=== PATIENT | female | born 1945 | race Caucasian/White ===

== ENCOUNTER → 2016-06-20 | Outpatient (CLI) | payer MEDICARE, OTHER ==
[~2016-06-20] MED LIST: CLINDAMYCIN HC300 MG PO; COREG6.25 MG PO; HYDROCODONE BIT1 T11 PO; LANTUS100 U/ML SC; LIPITOR10 MG PO; LISINOPRIL5 MG PO; LOPRESSOR25 MG PO; MOTRIN800 MG PO; NOVOLOG 701 UNIT/0.0 SC; ROBAXIN750 MG PO; SIMVASTATIN20 MG PO; VICODIN 500 MG-1 TAB PO
[2016-06-20 08:01] LABS: BASO # 0.1 10*3/uL (0.0-0.1); BASO % 0.6 % (0.0-1.0); EOS # 0.2 10*3/uL (0.0-0.4); EOS % 1.9 % (1.0-4.0); HEMATOCRIT 47.9 % (37.0-47.0); HEMOGLOBIN 15.9 g/dl (12.0-16.0); LYMPH # 3.4 10*3/uL (1.3-4.4); LYMPH % 33.8 % (27.0-41.0); MEAN CELL VOLUME 87.7 fl (81.0-99.0); MEAN CORPUSCULAR HGB 29.1 pg (27.0-31.0); MEAN CORPUSCULAR HGB CONC 33.2 g/dl (33.0-37.0); MEAN PLATELET VOLUME 11.3 fl (9.6-12.3); MONO # 0.6 10*3/uL (0.1-1.0); MONO % 6.1 % (3.0-9.0); NEUT # 5.8 10*3/uL (2.3-7.9); NEUT % 57.4 % (47.0-73.0); PLATELET COUNT AUTOMATED 264 10*3/uL (130-400); RED BLOOD COUNT 5.46 10*6/uL (4.10-5.10); RED CELL DISTRI WIDTH 14.5 % (0-14.5); WHITE BLOOD COUNT 10.1 10*3/uL (4.8-10.8)
[2016-06-20 08:10] LABS: HEMOGLOBIN A1c 10.8 % (4.8-5.6)
[2016-06-20 08:34] LABS: ALBUMIN 2.9 gm/dl (3.1-4.5); BUN 10 mg/dl (7-24); CARBON DIOXIDE 26 mmol/L (21-32); CHLORIDE 107 mmol/L (98-107); GLUCOSE 262 mg/dL (65-99); SODIUM 139 mmol/L (136-145)
[2016-06-20 08:38] LABS: ALKALINE PHOSPHATASE 81 U/L (45-117); BILIRUBIN, DIRECT 0.1 mg/dL (0.0-0.2); BILIRUBIN, TOTAL 0.7 mg/dl (0.2-1.0); CHOLESTEROL 226 mg/dL (<200); EST GLOM FILT AFRICAN AMERICAN > 60 ml/min; HDL CHOLESTEROL 48 mg/dl (40-60); LDL CHOLESTEROL 141 mg/dL (9-159); SGOT/AST 16 IU/L (3-35); SGPT/ALT 17 U/L (12-78); TRIGLYCERIDES 184 mg/dl (<150); VLDL CHOLESTEROL 37 mg/dL (6-40)
== END | disposition home or self-care (01) ==
LOC: LAB 07:29
PROVIDERS: Family Medicine
DX: E11.59 Type 2 diabetes mellitus with other circulatory complications (principal); R10.9 Unspecified abdominal pain

== ENCOUNTER 2017-05-31 20:19 | Emergency (ER) | payer MEDICARE, OTHER ==
[~2017-05-31] VITALS: Ht 157.4 cm; Wt 93.0 kg
[2017-05-31] MEDS ORDERED: PLAVIX75 M1 PO (20:50)
[2017-05-31] MEDS ORDERED: ASPIRIN LITE C325 MG PO (20:50)
[2017-05-31 20:56] LABS: BASO # 0.1 10*3/uL (0.0-0.1); BASO % 0.9 % (0.0-1.0); EOS # 0.4 10*3/uL (0.0-0.4); HEMATOCRIT 41.6 % (37.0-47.0); HEMOGLOBIN 14.1 g/dl (12.0-16.0); LYMPH % 30.5 % (27.0-41.0); MEAN CELL VOLUME 87.6 fl (81.0-99.0); MEAN CORPUSCULAR HGB 29.7 pg (27.0-31.0); MEAN CORPUSCULAR HGB CONC 33.9 g/dl (33.0-37.0); MEAN PLATELET VOLUME 10.8 fl (9.6-12.3); MONO # 0.6 10*3/uL (0.1-1.0); MONO % 6.6 % (3.0-9.0); NEUT # 5.6 10*3/uL (2.3-7.9); NEUT % 57.6 % (47.0-73.0); PLATELET COUNT AUTOMATED 268 10*3/uL (130-400); RED BLOOD COUNT 4.75 10*6/uL (4.10-5.10); RED CELL DISTRI WIDTH 14.5 % (0-14.5); WHITE BLOOD COUNT 9.7 10*3/uL (4.8-10.8)
[2017-05-31 21:04] LABS: INTERNATIONAL NORM RATIO 0.9 (2.0-3.5)
[2017-05-31 21:19] LABS: ALBUMIN 3.1 gm/dl (3.1-4.5); ALKALINE PHOSPHATASE 78 U/L (45-117); BUN 17 mg/dl (7-24); CHLORIDE 104 mmol/L (98-107); POTASSIUM 3.9 mmol/L (3.5-5.1); SGOT/AST 10 IU/L (3-35); SGPT/ALT 16 U/L (12-78); SODIUM 138 mmol/L (136-145); TOTAL PROTEIN 7.1 gm/dL (6.4-8.2)
[2017-05-31 21:20] LABS: TROPONIN I < 0.015 ng/ml (<0.045)
== END 2017-05-31 23:49 | disposition home or self-care (01) ==
LOC: ED 20:19
PROVIDERS: Emergency Medicine Emergency Medical Services
DX: I10 Essential (primary) hypertension (principal); T44.7X5A Adverse effect of beta-adrenoreceptor antagonists, initial encounter; E11.9 Type 2 diabetes mellitus without complications; Z90.710 Acquired absence of both cervix and uterus; Z79.899 Other long term (current) drug therapy; Z79.4 Long term (current) use of insulin; Z88.0 Allergy status to penicillin; Z91.041 Radiographic dye allergy status; Z88.6 Allergy status to analgesic agent; Z86.73 Personal history of transient ischemic attack (TIA), and cerebral infarction without residual deficits; Y92.9 Unspecified place or not applicable

== ENCOUNTER → 2017-08-22 | Outpatient (CLI) | payer MEDICARE, OTHER ==
[~2017-08-22] MED LIST changes: +ASPIRIN LITE C325 MG PO; +PLAVIX75 M1 PO
--- NOTE | ~2017-08-22 | HM ---
[place], [place] HOLTER MONITOR REPORT NAME: Isaías [facility] [id number] UNIT #: [id number] ROOM: DOCTOR: JAIR GEORGE MD BIRTHDATE: [birth year] DOS: 08/24/2017 A 48-HOUR HOLTER MONITOR This study was recorded from 08/22/2017 through 08/24/2017. The recording was analyzed, interpreted and dictated on 08/24/2017. INDICATIONS: Stroke. PROCEDURE: A 48-hour Holter recording was obtained to the patient. FINDINGS: Basic rhythm is normal sinus with an average heart rate of 61. Heart rate varied from 47-101 beats per minute in sinus rhythm. The patient had very rare premature ventricular contractions. No ventricular tachycardia was seen. The patient had rare premature atrial contractions with 1 atrial triplet. There was no supraventricular tachycardia or atrial fibrillation recorded. No prolonged pauses were seen. The patient did not report any symptoms during the monitor. IMPRESSION: 1. Relative bradycardia with average heart rate of 61 and heart rates varying from 47-101 beats per minute recorded. 2. Otherwise, normal 48-hour Holter monitor. JAIR GEORGE MD CM:HOLTER:HOLTER MONITOR REPORT [id number] JAIR GEORGE MD
== END | disposition home or self-care (01) ==
LOC: CARD 10:12
DX: I63.311 Cerebral infarction due to thrombosis of right middle cerebral artery (principal); I69.30 Unspecified sequelae of cerebral infarction

== ENCOUNTER 2018-08-31 14:55 | Emergency (ER) | payer MEDICARE, OTHER ==
[~2018-08-31] VITALS: Ht 157.4 cm; Wt 90.7 kg
[~2018-08-31 14:55] MED LIST changes: +ADALAT10 MG PO; +BASAG SOL SC; +CAPOTEN12.5 MG PO; +FUROSEMIDE20 M1 PO; +HYDR12.5C PO; +NIFEDIPINE ER30 M1 PO; +NOVOLOG10 ML SC; +VITAMIN D32000 UNI1 PO; +XARELTO10 MG PO
[2018-08-31 15:49] LABS: BASO # 0.1 10*3/uL (0.0-0.1); BASO % 0.7 % (0.0-1.0); EOS # 0.3 10*3/uL (0.0-0.4); HEMATOCRIT 35.2 % (37.0-47.0); HEMOGLOBIN 11.2 g/dl (12.0-16.0); LYMPH # 2.9 10*3/uL (1.3-4.4); LYMPH % 33.2 % (27.0-41.0); MEAN CELL VOLUME 84.4 fl (81.0-99.0); MEAN CORPUSCULAR HGB 26.9 pg (27.0-31.0); MEAN CORPUSCULAR HGB CONC 31.8 g/dl (33.0-37.0); MEAN PLATELET VOLUME 10.3 fl (9.6-12.3); MONO # 0.6 10*3/uL (0.1-1.0); MONO % 6.8 % (3.0-9.0); NEUT # 4.8 10*3/uL (2.3-7.9); NEUT % 56.1 % (47.0-73.0); PLATELET COUNT AUTOMATED 308 10*3/uL (130-400); RED BLOOD COUNT 4.17 10*6/uL (4.10-5.10); RED CELL DISTRI WIDTH 16.6 % (0-14.5); WHITE BLOOD COUNT 8.6 10*3/uL (4.8-10.8)
[2018-09-13] MEDS ORDERED: XARELTO10 MG PO (10:39)
[2018-09-13] MEDS ORDERED: LEVAQUIN750 M1 PO (10:40)
[2018-09-21] MEDS ORDERED: METRONIDAZOLE500 M1 PO (08:27)
[2018-09-21] MEDS ORDERED: DOXYCYCLINE100 M3 PO (08:27)
== END 2018-08-31 16:37 | disposition home or self-care (01) ==
LOC: ED 14:55
PROVIDERS: Physician Assistant
DX: M79.661 Pain in right lower leg (principal); M79.671 Pain in right foot; F17.200 Nicotine dependence, unspecified, uncomplicated; Z88.8 Allergy status to other drugs, medicaments and biological substances; Z88.0 Allergy status to penicillin; Z79.899 Other long term (current) drug therapy; Z79.82 Long term (current) use of aspirin; Z90.710 Acquired absence of both cervix and uterus

== ENCOUNTER 2018-11-01 20:34 | Emergency (ER) | payer MEDICARE, OTHER ==
[~2018-11-01] VITALS: Ht 167.6 cm; Wt 113.4 kg
[~2018-11-01 20:34] MED LIST changes: +DOXYCYCLINE100 M3 PO; +LEVAQUIN750 M1 PO; +METRONIDAZOLE500 M1 PO
== END 2018-11-01 22:24 | disposition home or self-care (01) ==
LOC: ED 20:34
DX: S82.891A Other fracture of right lower leg, initial encounter for closed fracture (principal); R60.0 Localized edema; I10 Essential (primary) hypertension; E11.9 Type 2 diabetes mellitus without complications; E66.01 Morbid (severe) obesity due to excess calories; Z86.73 Personal history of transient ischemic attack (TIA), and cerebral infarction without residual deficits; Z88.8 Allergy status to other drugs, medicaments and biological substances; Z88.0 Allergy status to penicillin; Z79.899 Other long term (current) drug therapy; Z79.4 Long term (current) use of insulin; Z90.710 Acquired absence of both cervix and uterus; Z87.891 Personal history of nicotine dependence; X58.XXXA Exposure to other specified factors, initial encounter; Y93.89 Activity, other specified; Y92.89 Other specified places as the place of occurrence of the external cause; Y99.8 Other external cause status

== ENCOUNTER 2018-12-06 09:36 | Inpatient (IN) | payer MEDICARE, OTHER ==
[2018-12-06] VITALS (8 sets, daily range): BP systolic 135–191; BP diastolic 80–91
[~2018-12-06] VITALS: Ht 157.4 cm; Wt 91.0 kg
[~2018-12-06 09:36] MED LIST changes: +CIPRO500 MG PO
[2018-12-06 10:01] LABS: BASO % 0.4 % (0.0-1.0); EOS # 0.2 10*3/uL (0.0-0.4); HEMATOCRIT 32.6 % (37.0-47.0); HEMOGLOBIN 10.5 g/dl (12.0-16.0); LYMPH # 2.2 10*3/uL (1.3-4.4); LYMPH % 28.9 % (27.0-41.0); MEAN CELL VOLUME 88.6 fl (81.0-99.0); MEAN CORPUSCULAR HGB 28.5 pg (27.0-31.0); MEAN CORPUSCULAR HGB CONC 32.2 g/dl (33.0-37.0); MEAN PLATELET VOLUME 10.5 fl (9.6-12.3); MONO # 0.5 10*3/uL (0.1-1.0); MONO % 6.4 % (3.0-9.0); NEUT # 4.6 10*3/uL (2.3-7.9); NEUT % 61.2 % (47.0-73.0); PLATELET COUNT AUTOMATED 294 10*3/uL (130-400); RED BLOOD COUNT 3.68 10*6/uL (4.10-5.10); RED CELL DISTRI WIDTH 16.7 % (0-14.5); WHITE BLOOD COUNT 7.5 10*3/uL (4.8-10.8)
[2018-12-06 10:16] LABS: BUN 12 mg/dl (7-24); CHLORIDE 105 mmol/L (98-107); CREATININE 0.72 mg/dL (0.55-1.02); SODIUM 138 mmol/L (136-145)
--- NOTE | 2018-12-06 16:50 | NUR ---
Time: 1649 A 73 year old FEMALE admitted to under services of LOVE SANTA MD. Pt. arrived via bed from [place]. Chief complaint: S/P OSTEOMYELITIS HARDWARE REMOVAL. JHOANA MARTÍNEZ
--- NOTE | 2018-12-06 18:32 | NUR ---
DR. DOBBISN CALLED AND STATED HE WILL PUT IN ORDERS TOMORROW.
--- NOTE | 2018-12-06 19:30 | NUR ---
BEDSIDE REPORT RECEIVED FROM DAYLIGHT NURSE. PT IS AWAKE ALERT AND ORIENTED. RESPIRATIONS EASY AND UNLABORED. PT FLUIDS RUNNING INTO IV SITE WITHOUT DIFFICULTY. PT VOICES NO CONCERNS AT THIS TIME. CALL LIGHT IN REACH.
[2018-12-07] VITALS: BP 145/71
--- NOTE | 2018-12-07 01:00 | NUR ---
PT SLEEPING AT THIS TIME. IV FLUIDS INFUSING WITHOUT DIFFICULTY. CALL LIGHT IN REACH.
--- NOTE | 2018-12-07 03:00 | NUR ---
PT SLEEPING AT THIS TIME. NO SIGNS OF DISTRESS NOTED. CALL LIGHT IN REACH.
--- NOTE | 2018-12-07 06:00 | NUR ---
PT BSG 190. PT REFUSING COVERAGE AT THIS TIME. STATES THAT SHE WANTS IT BEFORE SHE EATS BREAKFAST.
[2018-12-07 06:49] LABS: BASO % 0.1 % (0.0-1.0); HEMATOCRIT 29.4 % (37.0-47.0); HEMOGLOBIN 9.2 g/dl (12.0-16.0); LYMPH # 2.1 10*3/uL (1.3-4.4); LYMPH % 17.7 % (27.0-41.0); MEAN CELL VOLUME 89.4 fl (81.0-99.0); MEAN CORPUSCULAR HGB CONC 31.3 g/dl (33.0-37.0); MONO # 0.8 10*3/uL (0.1-1.0); NEUT # 8.8 10*3/uL (2.3-7.9); NEUT % 74.8 % (47.0-73.0); PLATELET COUNT AUTOMATED 294 10*3/uL (130-400); RED BLOOD COUNT 3.29 10*6/uL (4.10-5.10); RED CELL DISTRI WIDTH 16.5 % (0-14.5); WHITE BLOOD COUNT 11.7 10*3/uL (4.8-10.8)
--- NOTE | 2018-12-07 06:53 | NUR ---
Isaías WRIGHTCE [id number] Please refer to the physician's history and physical for past medical history, comorbid conditions, and allergies. Diagnosis: OSTEOMYELITIS S/P HARDWARE REMOVAL Dusty Score: 14,MODERATE RISK WOUND DESCRIPTIONS: Wound Number: 1 Location of the wound: right buttocks Type of wound: stage 2 Thickness: Partial Size: 1.1cm x 1.2cm x 0.1cm Tunneling: none Undermining: none Sinus Tract: none Presence of Exudate: Serous sanguineous Amount: Light Color: Red Odor: None Periwound Skin Appearance: Normal Wound edges: approximated Pain (associated with wound): tender to touch How does patient state this happened? pt stated she has had area on and off and she isn't sure if it is due to the briefs at home or not. Pt also stated that she is up in her wheelchair the majority of her time unless she needs to go to the bathroom then her helps her transfer. Wound Number: 2 Location of the wound: coccyx Type of wound: stage 2 Thickness: Partial Size: 7.0cm x 0.5cm x 0.1cm Tunneling: none Undermining: none Sinus Tract: none Presence of Exudate: Serosanguineous Amount: Light Color: Red Odor: None Periwound Skin Appearance: Normal Wound edges: approximated Pain (associated with wound): tender to touch How does patient state this happened? pt stated she has had area on and off and she isn't sure if it is due to the briefs at home or not. Pt also stated that she is up in her wheelchair the majority of her time unless she needs to go to the bathroom then her helps her transfer. Wound Number: 3 RLE post op dressing intact. No strikethrough drainage noted at time of assessment. Drain patent at time of assessment. Pt stated she follows with podiatry every tuesday and will continue to do so once she is discharged. Surface the patient is resting on: Position Pro SKIN PREVENTION RECOMMENDATION: 1. Pressure redistribution support surface as appropriate 2. Elevate heels 3. Remove boots/TEDS every shift and reapply 4. Head of bed 30 degrees as tolerated 5. Assess nutrition and hydration 6. Manage moisture 7. Avoid the use of containment devices while in bed 8. Use absorptive products on surfaces limit layers of linens on bed 9. Turn and reposition every 1-2 hours in bed and every 1 hour in chair as tolerated 10. Weight shifts every 15 minutes while up in chair 11. Offloading with pillows or device to keep heels elevated off bed 12. Monitor skin at least every shift 13. Inspect under medical devices twice a day WOUND TREATMENT RECOMMENDATIONS: Cleanse right buttocks and coccyx with soap and water pat area dry then apply calazime every shift and prn for soiling. Wheelchair cushion when oob. Patient stated she doesn't need to follow up with in an outpatient setting for the areas to her butt she stated she will just keep following with podiatry for her leg.
[2018-12-07 06:56] LABS: BUN 15 mg/dl (7-24); CHLORIDE 107 mmol/L (98-107); POTASSIUM 4.3 mmol/L (3.5-5.1); SODIUM 137 mmol/L (136-145)
[2018-12-07 08:00] VITALS: BP 144/72
[2018-12-07 08:04] LABS: HEPATITIS B SURFACE AG Negative (Negative)
--- NOTE | 2018-12-07 09:00 | NUR ---
Data Reporting Analyst in to talk to patient. Patient states lives at home with her . There are 0 steps in the home. Physician: Dr. Sue Church [facility]acy: [facility] depending on [facility] health services: has had [facility] in the past and would like them again Patient's level of ADLs: MINIMAL ASSIST Patient has working utilities: yes DME: walker, hospital bed, would like a Isha lift for home Follow-up physician's appointment after d/c: she prefers to make her own follow up appt after discharge Does patient want to access PORTAL?: no Discharge plan discussed with patient. She lives at home with her . She is independent in her ADLs and ambulates with a walker. Discussed home health care services and she is agreeable and would like to have [facility] as she has had them in the past. She paulette like a Isha lift for home. Notified Dr. Church. When medically stable she will be discharged to home with [facility]. Her will provide transportation on discharge. RENETTA VALERA
--- NOTE | 2018-12-07 11:39 | NUR ---
Faxed prescription for Isha lift to [facility]
--- NOTE | 2018-12-07 15:36 | NUR ---
PHYSICAL THERAPY Nursing screen received and chart reviewed. Please order skilled PT evaluation if decline in functional mobility presents. Thank you, Park Parkinson,SPT Zayda Ruiz,PT,DPT
[2018-12-07 16:00] VITALS: BP 108/60
[2018-12-07 16:02] LABS: HCV AB VERIFICATION REFLEX CHG FOR REFLEX (Y); HCV ANTIBODY VERIFICATION Reactive (Non Reactive); HEPATITIS C AB 8.1 (0.0-0.9)
--- NOTE | 2018-12-07 17:51 | NUR ---
Pt c/o right ankle pain. Described as aching, rated at 7 on 0-10 scale. Respiration easy, unlabored. Skin pink and dry. Medicated per order. No acute distress noted. Pt verbalized relief.
--- NOTE | 2018-12-07 19:47 | NUR ---
PT REFUSES 1999 PROCARDIA. STATES " I DON'T TAKE THAT." MED IS ON PT MED LIST FROM HOME. PT CONT TO REFUSE.
[2018-12-07 20:00] VITALS: BP 154/59
--- NOTE | 2018-12-07 20:34 | NUR ---
1999 CALL LIGHT ON. YELLING "WHERE"S MY ?". REASSURANCE GIVEN. HOB ELEVATED. SIDE RAILS UP X'S 2. ALERT. CALL LIGHT IN REACH. HEP LOCK INTACT. BULKY DRSG D/I R FOOT. SHANNON BULB DRAIN INTACT. NO DRNG NOTED ON DRSG.
--- NOTE | 2018-12-07 22:13 | NUR ---
RESTING IN BED WITH EYES CLOSED. APPEARS TO BE SLEEPING.
[2018-12-08] VITALS: BP 157/63
--- NOTE | 2018-12-08 04:40 | NUR ---
PATIENT REQUESTED AND WAS MEDICATED WITH TYLENOL FOR C/O LEG PAIN. SEE EMAR. PATIENT INSISTING ON SITTING ON SIDE OF BED WITH LEG HANGING OVER. STATED IF WE DID NOT HELP HER SHE WOULD DO IT HERSELF AND HURT HERSELF.
--- NOTE | 2018-12-08 05:07 | NUR ---
PATIENT ASSISTED BACK TO LAYING POSITION IN BED. REINFORCED USE OF CALL LIGHT.
[2018-12-08 08:00] VITALS: BP 146/47
--- NOTE | 2018-12-08 08:26 | NUR ---
Faxed home health care order to [facility]
--- NOTE | 2018-12-08 08:41 | NUR ---
CALL PLACED TO PODIATRY REGARDING PLAN FOR PT PER DR REYES' REQUEST. DR DOBBINS STATES HE WILL BE IN TO SEE PT THIS AFTERNOON AND WILL THEN CALL DR REYES. DR REYES STATES SHE WILL PLACE A TENTATIVE D/C ORDER PLANNING FOR POSSIBLE D/C,
[2018-12-08] MEDS ORDERED: LISINOPRIL5 MG PO (08:51)
[2018-12-08] MEDS ORDERED: COREG6.25 MG PO (08:51)
[2018-12-08] MEDS ORDERED: XARELTO10 MG PO (08:51)
--- NOTE | 2018-12-08 09:51 | NUR ---
Received call from [facility] stating they received the home health care referral and are working on the process. Received call from [facility] stating they just discharged the patient and that the patient fired [facility] in September. Explained patient chose [facility] on discharge.
[2018-12-08 12:00] VITALS: BP 145/50
--- NOTE | 2018-12-08 14:00 | NUR ---
PT REFUSED DISCHARGE PHOTOS AT THIS TIME, SHE IS ALREADY DRESSED AND SITTING IN WHEELCHAIR IN PREPARARION FOR D/C.
--- NOTE | 2018-12-08 14:05 | NUR ---
Discharge instructions reviewed with patient/family. Patient receptive and verbalizes understanding. Follow-up care arranged. Written instructions given to patient/family. IV site removed. Pt trasnported via wheelchair. TOMMY RYAN
[2018-12-08 15:06] LABS: ACID FAST SPEC PROCESSING Tissue Grinding (.)
[2018-12-10 00:01] LABS: HEPATITIS C QUANTITATION HCV Not Detected IU/mL (.)
[2019-01-18 10:07] LABS: ACID FAST CULTURE Negative (.)
== END 2018-12-08 14:05 | disposition home or self-care (01) | DRG 478 ==
LOC: SDC 09:36 → 4E 16:36
PROVIDERS: Podiatrist; ADMIT Internal Medicine
PROC: 0QBG0ZZ Excision of Right Tibia, Open Approach (ICD-10-PCS; principal; 2018-12-06)
PROC: 0SPF04Z Removal of Internal Fixation Device from Right Ankle Joint, Open Approach (ICD-10-PCS; principal; 2018-12-06)
PROC: 0SGH0KZ Fusion of Right Tarsal Joint with Nonautologous Tissue Substitute, Open Approach (ICD-10-PCS; principal; 2018-12-06)
PROC: 0SGH04Z Fusion of Right Tarsal Joint with Internal Fixation Device, Open Approach (ICD-10-PCS; principal; 2018-12-06)
PROC: 0QBG0ZX Excision of Right Tibia, Open Approach, Diagnostic (ICD-10-PCS; principal; 2018-12-06)
PROC: 0SGF04Z Fusion of Right Ankle Joint with Internal Fixation Device, Open Approach (ICD-10-PCS; principal; 2018-12-06)
DX: T84.84XA Pain due to internal orthopedic prosthetic devices, implants and grafts, initial encounter (principal); M86.661 Other chronic osteomyelitis, right tibia and fibula; I69.354 Hemiplegia and hemiparesis following cerebral infarction affecting left non-dominant side; I11.9 Hypertensive heart disease without heart failure; E66.3 Overweight; M21.071 Valgus deformity, not elsewhere classified, right ankle; T84.7XXA Infection and inflammatory reaction due to other internal orthopedic prosthetic devices, implants and grafts, initial encounter; B19.20 Unspecified viral hepatitis C without hepatic coma; E11.40 Type 2 diabetes mellitus with diabetic neuropathy, unspecified; E11.69 Type 2 diabetes mellitus with other specified complication; M19.071 Primary osteoarthritis, right ankle and foot; Y83.1 Surgical operation with implant of artificial internal device as the cause of abnormal reaction of the patient, or of later complication, without mention of misadventure at the time of the procedure; Y92.89 Other specified places as the place of occurrence of the external cause; Z79.4 Long term (current) use of insulin; Z91.19 Patient's noncompliance with other medical treatment and regimen; Z68.36 Body mass index [BMI] 36.0-36.9, adult

== ENCOUNTER 2020-01-31 16:26 | Inpatient (IN) | payer MEDICARE, OTHER ==
[~2020-01-31] VITALS: Ht 157.4 cm; Wt 103.1 kg
[~2020-01-31 16:26] MED LIST changes: +CLOPIDOGREL75 MG PO; +COREG12.5 M1 PO; +GLIMEPIRIDE2 MG PO; +GOOD SENSE ASP325 MG PO; +LISINOPRIL20 MG PO; +MIRTAZAPINE15 M2 PO; +OXYBUTYNIN10 MG PO
[2020-01-31 16:27] VITALS: BP 136/35
[2020-01-31 17:17] LABS: BASO % 0.2 % (0.0-1.0); EOS % 0.2 % (1.0-4.0); HEMATOCRIT 36.5 % (37.0-47.0); LYMPH # 1.6 10*3/uL (1.3-4.4); LYMPH % 25.1 % (27.0-41.0); MEAN CELL VOLUME 89.9 fl (81.0-99.0); MEAN CORPUSCULAR HGB 29.3 pg (27.0-31.0); MEAN CORPUSCULAR HGB CONC 32.6 g/dl (33.0-37.0); MEAN PLATELET VOLUME 10.8 fl (9.6-12.3); MONO # 0.5 10*3/uL (0.1-1.0); MONO % 6.9 % (3.0-9.0); NEUT # 4.4 10*3/uL (2.3-7.9); NEUT % 67.4 % (47.0-73.0); PLATELET COUNT AUTOMATED 272 10*3/uL (130-400); RED BLOOD COUNT 4.06 10*6/uL (4.10-5.10); RED CELL DISTRI WIDTH 13.4 % (0-14.5); WHITE BLOOD COUNT 6.5 10*3/uL (4.8-10.8)
[2020-01-31 17:18] LABS: ACT PARTIAL THROMBO TIME 29.9 SECONDS (20.0-32.1)
[2020-01-31 17:23] LABS: ALBUMIN 2.7 gm/dl (3.1-4.5); ALKALINE PHOSPHATASE 55 U/L (45-117); BUN 13 mg/dl (7-24); CHLORIDE 102 mmol/L (98-107); CREATININE 0.99 mg/dL (0.55-1.02); LIPASE 69 U/L (73-393); POTASSIUM 3.4 mmol/L (3.5-5.1); SGOT/AST 21 IU/L (3-35); SGPT/ALT 18 U/L (12-78); SODIUM 134 mmol/L (136-145)
[2020-01-31 17:44] VITALS: BP 110/29
--- NOTE | 2020-01-31 18:47 | NUR ---
UNABLE TO OBTAIN IV SITE AT THIS TIME. DR ESTES AWARE.
[2020-01-31 18:58] VITALS: BP 161/68
[2020-01-31 22:10] VITALS: BP 158/68
--- NOTE | 2020-01-31 23:19 | NUR ---
REPORT RECEIVED FROM WENDIE RODRIGUEZ.
[2020-02-01] VITALS (16 sets, daily range): BP systolic 120–174; BP diastolic 50–82
--- NOTE | 2020-02-01 02:18 | NUR ---
PT RESTING IN ROOM AT THIS TIME. NO DISTRESS NOTED, NO VOICED COMPLAINTS. CALL LIGHT WITHIN REACH. WILL CONTINUE TO MONITOR.
--- NOTE | 2020-02-01 06:19 | NUR ---
PT GIVEN WATER. RESTING IN BED. CALL LIGHT WITHIN REACH. WILL CONTINUE TO MONITOR.
--- NOTE | 2020-02-01 07:30 | NUR ---
PT. RESTING IN BED, APPEARS TO BE IN NO DISTRESS. RR EASY AND NON-LABORED. CALL LIGHT WITHIN REACH. WILL CONTINUE TO MONITOR.
--- NOTE | 2020-02-01 09:21 | NUR ---
APTT- 68.4. DR. WEBB NOTIFIED. NO CHANGE IN RATE D/T PROTOCOL.
--- NOTE | 2020-02-01 09:22 | NUR ---
DR. WEBB AWARE OF CRITICAL TROPONIN
--- NOTE | 2020-02-01 09:44 | NUR ---
STILL WAITING FOR A BED AT [facility].
--- NOTE | 2020-02-01 11:58 | NUR ---
CLEANED PT. UP, PUT NEW BRIEF AND GOWN ON. INSERTED A BANERJEE CATHETER 16G. OBTAINED URINE SPECIMEN AND SENT TO LAB. PT. APPEARS TO BE IN NO DISTRESS AT THIS TIME. RR EASY AND NON-LABORED. CALL LIGHT WITHIN REACH. SKIN BREAKDOWN NOTED TO ABDOMINAL FOLDS, VERY RED AND IRRITATED. WILL CONTINUE TO MONITOR.
--- NOTE | 2020-02-01 12:00 | NUR ---
STILL WAITING FOR A BED AT [facility] FOR TRANSFER.
[2020-02-01 12:02] LABS: BILIRUBIN Negative (Negative); BLOOD 2+ (Negative); CLARITY Turbid (Clear); COLOR Dark Yellow (Yellow); GLUCOSE Negative (Negative); KETONE 2+ (Negative); LEUKO ESTERASE 3+ (Negative); NITRITE Positive (Negative); PH 5.5 (4.5-8.0); SPECIFIC GRAVITY 1.015 (1.001-1.030)
[2020-02-01 12:17] LABS: BACTERIA 4+; WBC TNTC wbc/hpf (0-5)
--- NOTE | 2020-02-01 14:35 | NUR ---
PT. RESTING IN BED. APPEARS TO BE IN NO DISTRESS, RR EASY AND NON-LABORED. CALL LIGHT WITHIN REACH. WILL CONTINUE TO MONITOR.
--- NOTE | 2020-02-01 16:41 | NUR ---
PT. RESTING IN BED, APPEARS TO BE IN NO DISTRESS. RR EASY AND NON-LABORED. CALL LIGHT WITHIN REACH. WILL CONTINUE TO MONITOR.
--- NOTE | 2020-02-01 19:26 | NUR ---
NURSE TO NURSE REPORT GIVEN TO THIS RN.HEPARIN DRIP INFUSING @ 10.8ML/HR.
--- NOTE | 2020-02-01 19:42 | NUR ---
NURSE TO NURSE REPORT GIVEN TO RN PANKAJ DENIS VIA PHONE.PT TO BE TRANSFERRED TO UNIT VIA STRETCHER AT THIS TIME.
--- NOTE | 2020-02-01 20:05 | NUR ---
PT ARRIVED TO THE FLOOR FROM ED AT THIS TIME. BEDISDE REPORT TAKEN FROM WENDIE MILLER.
--- NOTE | 2020-02-01 20:21 | NUR ---
ADMISSION VITALS WERE TAKEN AND THE PT HAD A 102.5 DEG FEVER. I CONTACTED THE RESIDENT ANSWERING FOR DR. WILDE AND DISCUSSED TREATMENT OPTIONS AT THIS TIME. HE WANTED TO GET MORE INFORMATION BEFORE PUTTING IN ORDERS.
--- NOTE | 2020-02-01 20:58 | NUR ---
A RECHECK OF THE PATIENT'S TEMP SHOWED A DECREASE TO 99.7. WILL CONTINUE TO MONITOR SHE IS ASYMPTOMATIC AT THIS TIME.
[2020-02-02] VITALS: BP 120/50
[2020-02-02 04:00] VITALS: BP 116/64
[2020-02-02 08:00] VITALS: BP 133/67
[2020-02-02 08:34] LABS: BASO % 0.3 % (0.0-1.0); EOS % 0.4 % (1.0-4.0); HEMATOCRIT 34.7 % (37.0-47.0); LYMPH # 1.8 10*3/uL (1.3-4.4); LYMPH % 24.9 % (27.0-41.0); MEAN CELL VOLUME 87.8 fl (81.0-99.0); MEAN CORPUSCULAR HGB 28.9 pg (27.0-31.0); MEAN CORPUSCULAR HGB CONC 32.9 g/dl (33.0-37.0); MEAN PLATELET VOLUME 10.6 fl (9.6-12.3); MONO # 0.5 10*3/uL (0.1-1.0); MONO % 7.1 % (3.0-9.0); NEUT # 4.8 10*3/uL (2.3-7.9); PLATELET COUNT AUTOMATED 272 10*3/uL (130-400); RED BLOOD COUNT 3.95 10*6/uL (4.10-5.10); RED CELL DISTRI WIDTH 13.1 % (0-14.5); WHITE BLOOD COUNT 7.2 10*3/uL (4.8-10.8)
[2020-02-02 08:50] LABS: ALBUMIN 2.5 gm/dl (3.1-4.5); ALKALINE PHOSPHATASE 51 U/L (45-117); BUN 10 mg/dl (7-24); CHLORIDE 103 mmol/L (98-107); CPK 207 U/L (26-192); CREATININE 0.74 mg/dL (0.55-1.02); LDH 306 U/L (84-246); POTASSIUM 3.3 mmol/L (3.5-5.1); SGOT/AST 21 IU/L (3-35); SGPT/ALT 19 U/L (12-78); SODIUM 135 mmol/L (136-145); TOTAL PROTEIN 7.4 gm/dL (6.4-8.2)
[2020-02-02 12:00] VITALS: BP 134/76
--- NOTE | 2020-02-02 14:33 | NUR ---
HEPARIN GTT HELD AT 1315 FOR ONE HR. GTT DECREASED BY 3. HEPARIN RUNNING @ 9.8 UNITS/KG/HR. PTT ORDERED FOR 2029.
--- NOTE | 2020-02-02 15:26 | NUR ---
Dog Barber in to talk to patient. Patient states lives at home with . There are no steps in the home. Physician: [facility] Pharmacy: [facility] services: none Patient's level of ADLs: MINIMAL ASSIST Patient has working utilities: all working DME: walker, hospital bed Follow-up physician's appointment after d/c: will be made by hospitalist nurse director upon discharge Does patient want to access PORTAL?: no Discharge plan discussed with patient, she lives at home with , she uses a walker for ambulation, she states she will return home when discharged, she stated she had [facility] in the past but doesn't feel at this time she needs anything, case management will follow. CAROL RIGGINS
--- NOTE | 2020-02-02 15:48 | NUR ---
BANERJEE REMOVED PER ORDER. DTV [id number]
[2020-02-02 16:00] VITALS: BP 139/84
[2020-02-02 20:00] VITALS: BP 157/78
--- NOTE | 2020-02-02 21:00 | NUR ---
HEAD TO TOE ASSESSMENT COMPLETED AT THIS TIME, PT RESTING QUIETLY AT THIS TIME, PT DENIES ANY PAIN OR DISCOMFORT EXCEPT FOR DRY AND CHAPPED LIPS, GAVE PT SOME LIP BALM AND APPLIED IT TO HER TWICE, LEFT TUBE AT BEDESIDE. BS, 150, NO SLIDING SCALE INSULIN NEEDED, PT WAS ABLE TO VOID A LARGE AMOUNT, INCONTINENT IN HER DIAPER. WILL CONTINUE TO MONITOR FOR SAFETY. NO ACUTE DISTRESS NOTED. ATTEMPTED X 2 TO RESTART PULLED OUT IV, ANOTHER NURSE UNABLE TO RESTART IV, CHARGE NURSE AWARE, DR BRIDGES WILL ADDRESS IT TOMORRROW WITH POSSIBLE PICC PLACEMENT DUE TO POOR VEINS, PTT AT HS WAS, 50.1, NO RATE CHANGE, NEW PTT DRAW IS AT 0700, WILL CONTINUE TO MONITOR FOR SAFETY, CALL LIGHT IN REACH.
[2020-02-03] VITALS: BP 149/77
--- NOTE | 2020-02-03 00:13 | NUR ---
I spoke to Dr. Braun regarding the pt only having one IV access after multiple other attempts by staff development manager. Pt is running Hep Gtt in the one IV site which is not compatible with IV abx. Okay to hold IV abx over the night and have Dr. Zacarias attempt midline in the morning. Kameron Dai, RN, PHRN
--- NOTE | 2020-02-03 06:59 | NUR ---
PT RESTING QUIETLY AT THIS TIME, NO PROBLEMS NOTED ALL SHIFT, WILL CONTINUE TO MONITOR FOR SAFETY, CALL LIGHT IN REACH.
[2020-02-03 07:06] LABS: BASO % 0.3 % (0.0-1.0); EOS % 0.6 % (1.0-4.0); HEMATOCRIT 35.7 % (37.0-47.0); LYMPH # 2.2 10*3/uL (1.3-4.4); LYMPH % 29.7 % (27.0-41.0); MEAN CELL VOLUME 88.1 fl (81.0-99.0); MEAN CORPUSCULAR HGB 29.1 pg (27.0-31.0); MEAN CORPUSCULAR HGB CONC 33.1 g/dl (33.0-37.0); MEAN PLATELET VOLUME 10.8 fl (9.6-12.3); MONO # 0.5 10*3/uL (0.1-1.0); MONO % 6.6 % (3.0-9.0); NEUT # 4.5 10*3/uL (2.3-7.9); NEUT % 62.7 % (47.0-73.0); PLATELET COUNT AUTOMATED 291 10*3/uL (130-400); RED BLOOD COUNT 4.05 10*6/uL (4.10-5.10); RED CELL DISTRI WIDTH 13.2 % (0-14.5); WHITE BLOOD COUNT 7.2 10*3/uL (4.8-10.8)
[2020-02-03 07:21] LABS: ALBUMIN 2.5 gm/dl (3.1-4.5); ALKALINE PHOSPHATASE 51 U/L (45-117); BUN 12 mg/dl (7-24); CHLORIDE 101 mmol/L (98-107); CREATININE 0.79 mg/dL (0.55-1.02); LDH 323 U/L (84-246); POTASSIUM 3.1 mmol/L (3.5-5.1); SGOT/AST 19 IU/L (3-35); SGPT/ALT 18 U/L (12-78); SODIUM 135 mmol/L (136-145); TOTAL PROTEIN 7.8 gm/dL (6.4-8.2)
[2020-02-03 07:22] LABS: CPK 216 U/L (26-192)
[2020-02-03 08:30] VITALS: BP 143/51
--- NOTE | 2020-02-03 10:05 | NUR ---
0700 PTT 59.5. NO BOLUS, NO CHANGE. HEPARIN GTT RUNNING @9.8 MG/KGK/HR
[2020-02-03 12:30] VITALS: BP 127/41
[2020-02-03 17:00] VITALS: BP 114/43
[2020-02-03 20:00] VITALS: BP 113/56
--- NOTE | 2020-02-03 22:00 | NUR ---
HEAD TO TOE ASSESSMENT COMPLETED, PT DENIED ANY PAIN OR DISCOMFORT, PT'S BLOOD SUGAR AT HS WAS 176, 3 UNITS OF HUMALOG GIVEN SUBQ PER SLIDING SCALE PER PROTOCAL, WILL CONTINUE TO MONITOR FOR SAFETY, CALL LIGHT IN REACH, BED IN LOW POSITION. PT ON TELE MONITOR, NSR. NO DISTRESS NOTED, WILL CONTINUE TO MONITOR FOR SAFETY.
[2020-02-04] VITALS: BP 118/46
[2020-02-04 08:32] VITALS: BP 143/80
[2020-02-04 09:12] LABS: BASO % 0.3 % (0.0-1.0); EOS % 0.4 % (1.0-4.0); HEMATOCRIT 37.6 % (37.0-47.0); LYMPH # 1.6 10*3/uL (1.3-4.4); MEAN CELL VOLUME 90.4 fl (81.0-99.0); MEAN CORPUSCULAR HGB 28.8 pg (27.0-31.0); MEAN CORPUSCULAR HGB CONC 31.9 g/dl (33.0-37.0); MEAN PLATELET VOLUME 11.3 fl (9.6-12.3); MONO # 0.5 10*3/uL (0.1-1.0); MONO % 7.1 % (3.0-9.0); NEUT # 5.2 10*3/uL (2.3-7.9); NEUT % 69.9 % (47.0-73.0); PLATELET COUNT AUTOMATED 305 10*3/uL (130-400); RED BLOOD COUNT 4.16 10*6/uL (4.10-5.10); RED CELL DISTRI WIDTH 13.2 % (0-14.5); WHITE BLOOD COUNT 7.4 10*3/uL (4.8-10.8)
[2020-02-04 09:30] LABS: ALBUMIN 2.6 gm/dl (3.1-4.5); ALKALINE PHOSPHATASE 50 U/L (45-117); BUN 15 mg/dl (7-24); CHLORIDE 104 mmol/L (98-107); CREATININE 0.81 mg/dL (0.55-1.02); LDH 349 U/L (84-246); POTASSIUM 3.6 mmol/L (3.5-5.1); SGOT/AST 24 IU/L (3-35); SGPT/ALT 21 U/L (12-78); SODIUM 134 mmol/L (136-145); TOTAL PROTEIN 7.8 gm/dL (6.4-8.2)
[2020-02-04 09:31] LABS: CPK 358 U/L (26-192)
[2020-02-04 12:00] VITALS: BP 117/42; BP 142/59
[2020-02-04 16:00] VITALS: BP 154/69
[2020-02-04 20:00] VITALS: BP 127/67
[2020-02-05] VITALS: BP 112/50; BP 144/58
--- NOTE | 2020-02-05 05:22 | NUR ---
HEAD TO TOE ASSESSMENT COMPLETED, PT RESTING QUIETLY AT THIS TIME, NAD, PT DENIES ANY PAIN OR DISCOMFORT AT THIS TIME. PT HAS CALL LIGHT IN REACH, BED IN LOW POSITION, ATTEMPTED TO REPOSITION HER AND ASSIST HER WITH TURNING. PT CAN HELP WITH TURNING AT TIME. PT PLEASANT, PT'S BLOOD SUGAR AT HS WAS 129, NO SLIDING SCALE AT HS REQUIRED FOR 129 BLOOD SUGAR, WILL CONTINUE TO MONITOR FOR SAFETY.
[2020-02-05 06:48] LABS: BASO % 0.3 % (0.0-1.0); EOS % 0.2 % (1.0-4.0); HEMATOCRIT 34.1 % (37.0-47.0); LYMPH # 2.6 10*3/uL (1.3-4.4); LYMPH % 28.4 % (27.0-41.0); MEAN CELL VOLUME 88.6 fl (81.0-99.0); MEAN CORPUSCULAR HGB 29.1 pg (27.0-31.0); MEAN CORPUSCULAR HGB CONC 32.8 g/dl (33.0-37.0); MEAN PLATELET VOLUME 11.9 fl (9.6-12.3); MONO # 0.7 10*3/uL (0.1-1.0); MONO % 7.4 % (3.0-9.0); NEUT # 5.8 10*3/uL (2.3-7.9); NEUT % 63.4 % (47.0-73.0); PLATELET COUNT AUTOMATED 350 10*3/uL (130-400); RED BLOOD COUNT 3.85 10*6/uL (4.10-5.10); RED CELL DISTRI WIDTH 13.2 % (0-14.5); WHITE BLOOD COUNT 9.1 10*3/uL (4.8-10.8)
[2020-02-05 07:40] LABS: CREATININE 0.85 mg/dL (0.55-1.02)
--- NOTE | 2020-02-05 07:45 | NUR ---
24 HR/ENTIRE chart check completed.
[2020-02-05 08:00] VITALS: BP 125/48
--- NOTE | 2020-02-05 08:30 | NUR ---
2LPM APPLIED AFTER ABG RESULT. PT IS LETHARGIC BUT RESPONSIVE.
[2020-02-05 08:39] LABS: ABG BASE EXCESS 0.1 mmol/L (-2.0-2.0); ARTERIAL BLOOD GAS PH 7.466 (7.35-7.45)
--- NOTE | 2020-02-05 08:53 | NUR ---
MEDICATED WITH PO TYLENOL ORDERED FOR TEMP OF 102.2 RECTALLY.
--- NOTE | 2020-02-05 09:19 | NUR ---
DR TRIPATHI NOTIFIED OF CONSULT.
--- NOTE | 2020-02-05 09:58 | NUR ---
SPLITTING MACHINE OPERATOR HELPER FAXED REFERRAL TO [facility].
--- NOTE | 2020-02-05 10:00 | NUR ---
DR TRIPATHI HERE TO SEE PT.
[2020-02-05 12:00] VITALS: BP 104/36
[2020-02-05 13:34] VITALS: BP 122/56
[2020-02-05 16:00] VITALS: BP 143/84
--- NOTE | 2020-02-05 16:00 | NUR ---
MEDICATION EFFECTIVE FOR TEMP WHICH IS NOW 97.7.
--- NOTE | 2020-02-05 17:00 | NUR ---
PT ATE SOME PUDDING/JELLO, DRANK H20/JOSE CARLOS HARVEY. SHE IS MUCH MORE ALERT THAN SHE WAS THIS AM. ORAL CARE HAS BEEN GIVEN REPEATEDLY AND HER ORAL MOISTURE HAS IMPROVED WITH LESS BLEEDING OF THE ORAL MUCOSA.
[2020-02-05 17:15] LABS: BASO % 0.4 % (0.0-1.0); EOS # 0.1 10*3/uL (0.0-0.4); EOS % 0.8 % (1.0-4.0); HEMATOCRIT 33.4 % (37.0-47.0); LYMPH # 2.2 10*3/uL (1.3-4.4); LYMPH % 27.3 % (27.0-41.0); MEAN CELL VOLUME 89.1 fl (81.0-99.0); MEAN CORPUSCULAR HGB 29.1 pg (27.0-31.0); MEAN CORPUSCULAR HGB CONC 32.6 g/dl (33.0-37.0); MEAN PLATELET VOLUME 11.3 fl (9.6-12.3); MONO # 0.5 10*3/uL (0.1-1.0); MONO % 6.6 % (3.0-9.0); NEUT # 5.2 10*3/uL (2.3-7.9); NEUT % 64.5 % (47.0-73.0); PLATELET COUNT AUTOMATED 346 10*3/uL (130-400); RED BLOOD COUNT 3.75 10*6/uL (4.10-5.10); RED CELL DISTRI WIDTH 13.2 % (0-14.5)
[2020-02-05 17:32] LABS: ALBUMIN 2.6 gm/dl (3.1-4.5); ALKALINE PHOSPHATASE 49 U/L (45-117); BUN 15 mg/dl (7-24); CHLORIDE 103 mmol/L (98-107); CREATININE 0.95 mg/dL (0.55-1.02); POTASSIUM 3.3 mmol/L (3.5-5.1); SGOT/AST 33 IU/L (3-35); SGPT/ALT 24 U/L (12-78); SODIUM 135 mmol/L (136-145); TOTAL PROTEIN 7.9 gm/dL (6.4-8.2)
[2020-02-05 20:00] VITALS: BP 132/63
--- NOTE | 2020-02-05 20:30 | NUR ---
TYLENOL GIVEN PER ORDER FOR ELEVATED TEMP. SEE VITAL SIGNS.
--- NOTE | 2020-02-05 21:30 | NUR ---
TYLENOL HELPING WITH FEVER.
[2020-02-06] VITALS: BP 135/47
--- NOTE | 2020-02-06 02:25 | NUR ---
24 HR chart check completed.
[2020-02-06 07:02] LABS: BASO % 0.2 % (0.0-1.0); HEMATOCRIT 32.5 % (37.0-47.0); LYMPH # 1.3 10*3/uL (1.3-4.4); LYMPH % 21.1 % (27.0-41.0); MEAN CORPUSCULAR HGB 29.1 pg (27.0-31.0); MEAN CORPUSCULAR HGB CONC 32.3 g/dl (33.0-37.0); MEAN PLATELET VOLUME 11.2 fl (9.6-12.3); MONO # 0.2 10*3/uL (0.1-1.0); MONO % 3.3 % (3.0-9.0); NEUT # 4.6 10*3/uL (2.3-7.9); NEUT % 74.7 % (47.0-73.0); PLATELET COUNT AUTOMATED 317 10*3/uL (130-400); RED BLOOD COUNT 3.61 10*6/uL (4.10-5.10); RED CELL DISTRI WIDTH 13.2 % (0-14.5); WHITE BLOOD COUNT 6.1 10*3/uL (4.8-10.8)
[2020-02-06 07:23] LABS: ALBUMIN 2.2 gm/dl (3.1-4.5); BUN 21 mg/dl (7-24); CHLORIDE 104 mmol/L (98-107); CREATININE 0.87 mg/dL (0.55-1.02); LDH 321 U/L (84-246); POTASSIUM 4.1 mmol/L (3.5-5.1); SGOT/AST 28 IU/L (3-35); SGPT/ALT 22 U/L (12-78); SODIUM 134 mmol/L (136-145)
[2020-02-06 07:24] LABS: ALKALINE PHOSPHATASE 43 U/L (45-117); TOTAL PROTEIN 7.2 gm/dL (6.4-8.2)
[2020-02-06 08:00] VITALS: BP 132/57
--- NOTE | 2020-02-06 09:00 | NUR ---
PT SEEN AND ASSESSED. PT IS ALERT AND RESPONSIVE. PT INFORMED THAT RN SPOKE TO REGARDING POC.
--- NOTE | 2020-02-06 09:35 | NUR ---
PHYSICAL THERAPY Physical Therapy evaluation completed on 4th floor with full evaluation to follow. Recommend physical therapy per plan of care and SNF upon discharge. Thank you for this referral. Danielle Stafford PT
--- NOTE | 2020-02-06 10:56 | NUR ---
OT evaluation completed on 4 with full eval to follow. Patient currently on COVID precuations- airborne isolation, uses O2 (not used at baseline), unable to safely stand/ transfer, needs laura. SNF recommended at this time. Continuous pulse ox monitor. Recommend skilled OT treatments per POC. Thank you. Ryanne Bradshaw, OTR/L
[2020-02-06 11:32] LABS: ABG BASE EXCESS -2.6 mmol/L (-2.0-2.0); ARTERIAL BLOOD GAS PH 7.433 (7.35-7.45)
--- NOTE | 2020-02-06 11:35 | NUR ---
PT GIVEN 1X DOSE OF LASIX AND POTASSIUM PER ORDER.
--- NOTE | 2020-02-06 11:48 | NUR ---
Called and spoke with patients . He stated he has been taking care of her for 6 months and he has everything she will need when she returns home. She has hospital bed, BSC, walker, diapers etc. His son also lives near by and will help with her care. She has [facility]. would like patient discharged to home when stable.
[2020-02-06 12:00] VITALS: BP 145/60
[2020-02-06 16:00] VITALS: BP 132/54
[2020-02-06 20:00] VITALS: BP 142/61
--- NOTE | 2020-02-06 22:15 | NUR ---
PATIENT REFUSED REGULAR INSULIN COVERAGE BUT DID AGREE TO LANTUS.
[2020-02-07] VITALS: BP 112/89
--- NOTE | 2020-02-07 01:25 | NUR ---
24 HR chart check completed.
--- NOTE | 2020-02-07 02:45 | NUR ---
COMPLETE BATH GIVEN AND BEDLINENS CHANGED. NO ACUTE DISTRESS NOTED.
[2020-02-07 07:27] LABS: BUN 26 mg/dl (7-24); CHLORIDE 105 mmol/L (98-107); CREATININE 0.97 mg/dL (0.55-1.02); POTASSIUM 4.1 mmol/L (3.5-5.1); SODIUM 135 mmol/L (136-145)
[2020-02-07 08:00] VITALS: BP 144/58
--- NOTE | 2020-02-07 11:47 | NUR ---
TALKED TO JOHN, HOME HEALTH NURSE. UPDATED ON PT STATUS.
[2020-02-07 12:00] VITALS: BP 133/54
[2020-02-07 16:00] VITALS: BP 128/56
[2020-02-07 20:00] VITALS: BP 128/45
--- NOTE | 2020-02-07 21:00 | NUR ---
PATIENT AWAKE, ALERT. RESTING IN BED. PAITENT REPOSITIONED TO HER RIGHT SIDE. PATIENT VOICES NO COMPLAINTS. PATIENT WEATING 2L NASAL CANNULA, 96%. NO SIGNS OF DISTRESS. RESPIRATIONS EASY, NON LABORED. BED IN LOWEST POSITION,CALL LIGHT WITHIN REACH. BED ALARM ON. WILL CONTINUE TO MONITOR.
--- NOTE | 2020-02-07 23:13 | NUR ---
24 HR chart check completed.
[2020-02-08] VITALS: BP 132/54
[2020-02-08 06:48] LABS: BASO % 0.1 % (0.0-1.0); HEMATOCRIT 30.5 % (37.0-47.0); LYMPH # 1.7 10*3/uL (1.3-4.4); LYMPH % 20.5 % (27.0-41.0); MEAN CELL VOLUME 87.6 fl (81.0-99.0); MEAN CORPUSCULAR HGB CONC 33.1 g/dl (33.0-37.0); MEAN PLATELET VOLUME 11.2 fl (9.6-12.3); MONO # 0.7 10*3/uL (0.1-1.0); MONO % 8.6 % (3.0-9.0); NEUT # 5.7 10*3/uL (2.3-7.9); NEUT % 69.7 % (47.0-73.0); PLATELET COUNT AUTOMATED 359 10*3/uL (130-400); RED BLOOD COUNT 3.48 10*6/uL (4.10-5.10); RED CELL DISTRI WIDTH 13.2 % (0-14.5); WHITE BLOOD COUNT 8.2 10*3/uL (4.8-10.8)
[2020-02-08 07:14] LABS: ALBUMIN 2.3 gm/dl (3.1-4.5); ALKALINE PHOSPHATASE 39 U/L (45-117); BUN 25 mg/dl (7-24); CHLORIDE 107 mmol/L (98-107); CREATININE 0.87 mg/dL (0.55-1.02); POTASSIUM 3.6 mmol/L (3.5-5.1); SGOT/AST 27 IU/L (3-35); SGPT/ALT 26 U/L (12-78); SODIUM 137 mmol/L (136-145); TOTAL PROTEIN 6.8 gm/dL (6.4-8.2)
[2020-02-08 08:00] VITALS: BP 140/53
--- NOTE | 2020-02-08 08:16 | NUR ---
SLEEPING. NO SXS OF DISTRESS NOTED. CALL LIGHT IN REACH. MORE DROWSY TODAY THAN YESTERDAY. AWAITING ABG RESULTS. BED ALARM ON.
[2020-02-08 08:44] LABS: ABG BASE EXCESS 0.1 mmol/L (-2.0-2.0); ARTERIAL BLOOD GAS PH 7.444 (7.35-7.45)
--- NOTE | 2020-02-08 11:53 | NUR ---
MILK OF MAG GIVEN FOR COMPLAINTS OF CONSTIPATION. WILL MONITOR FOR EFFECTIVENESS. CALL LIGHT IN REACH. NO FURTHER COMPLAINTS.
[2020-02-08 12:00] VITALS: BP 128/48
--- NOTE | 2020-02-08 14:46 | NUR ---
PHYSICAL THERAPY TREATMENT TIME: OUT 1330 25 MINUTES TOTAL Patient presented to therapy in supine with head of bed flat and bed alarm off. Patient is on 2 liters of spO2 VIA NASAL CANULA. Patient reports R sided weakness both in UE and LE. Patient gives informed consent for treatment. Patient was identified by name and on wristband. Patient performed supine <> sitting on EOB with MOD A X 2. Patient STS <> EOB with MIN A X 2. Patient standing tolerance 1 min 30 seconds the 1st attempt and 1 min for the 2 nd attempt with CGA X 2 - MIN A X 2. Patient sat on EOB and performed seated bilateral LE ther ex x 15 reps each in all planes of movement including LAQs, marches and heel/toe raises for strengthening and to improve functional mobility. Patient reports a R ankle fracture over year ago. patient does have swelling in the R foot. Patient tolerated stadning with minimal pain. Nothing mentioned in PT eval about wt bearing restrictions. Patient transferred back to supine in bed with MOD A X 2. Patient moved up to head of bed with sheet and MAX A X 2. AASHISH PETERS present as witness to this treatment. Patient was 1:1 with this COMPOUND MACHINE OPERATOR for 25 minutes total. GENEVIEVE TALAMANTES COMPOUND MACHINE OPERATOR
--- NOTE | 2020-02-08 14:48 | NUR ---
Occupational Therapy Time Out: 12:23 Patient was seen this afternoon 1:1 for 23 minutes of occupational therapy session. upon arrival pt was supine in bed with Left bunny boot intact and 2LO2 via nc. Pt identified by name and and had no complains at this time. Patient transferred supien to sit EOB with MODx2 A with BLE and trunk assist. Pt demonstrated poor seated balance and was retropulsive. Sit to stand was completed from bed level with Mod A (minx2) with use of ww. Pt reported right foot has been broke for years and had diffiuclty pushing weight through foot. Actiivty tolerance was challenged by static standing for 1.5 minutes. Second sit to stand was completed for 1 minute to imrpove statid standing. Pt then completed ADLs seated. Pt combed hair with MOD A due to poor throughness in back of hair. Pt then transfered from sit to supine with modx2 assist with trunk and bilateral legs. Pt was left supien in bed with bed alarm on and all needs within reach. Continue to recommend d/c to SNF. Continue occupational therapy plan of care. Sarah Argueta OTR/
[2020-02-08 16:00] VITALS: BP 123/71
[2020-02-08 20:00] VITALS: BP 124/66
[2020-02-09] VITALS: BP 148/57
[2020-02-09 07:16] LABS: LYMPH % 26.7 % (27.0-41.0); MEAN CELL VOLUME 88.3 fl (81.0-99.0); MEAN CORPUSCULAR HGB 29.1 pg (27.0-31.0); MEAN CORPUSCULAR HGB CONC 32.9 g/dl (33.0-37.0); MEAN PLATELET VOLUME 11.4 fl (9.6-12.3); MONO # 0.8 10*3/uL (0.1-1.0); MONO % 10.1 % (3.0-9.0); NEUT # 4.6 10*3/uL (2.3-7.9); NEUT % 61.7 % (47.0-73.0); PLATELET COUNT AUTOMATED 373 10*3/uL (130-400); RED BLOOD COUNT 3.51 10*6/uL (4.10-5.10); RED CELL DISTRI WIDTH 13.2 % (0-14.5); WHITE BLOOD COUNT 7.5 10*3/uL (4.8-10.8)
--- NOTE | 2020-02-09 07:23 | NUR ---
PATIENT REQUESTING TO HAVE BIPAP TAKEN OFF. NASAL CANNULA PLACED. WILL CONTINUE TO MONITOR.
[2020-02-09 07:34] LABS: ALBUMIN 2.4 gm/dl (3.1-4.5); BUN 28 mg/dl (7-24); CHLORIDE 106 mmol/L (98-107); CREATININE 0.99 mg/dL (0.55-1.02); POTASSIUM 3.8 mmol/L (3.5-5.1); SGOT/AST 24 IU/L (3-35); SGPT/ALT 31 U/L (12-78); SODIUM 138 mmol/L (136-145)
[2020-02-09 07:38] LABS: ALKALINE PHOSPHATASE 42 U/L (45-117); TOTAL PROTEIN 6.8 gm/dL (6.4-8.2)
--- NOTE | 2020-02-09 07:42 | NUR ---
RESTING IN BED, NO DISTRESS NOTED. BIPAP OFF AT THIS TIME. NASAL CANNULA IN PLACE. RESPERATIONS EASY, REGULAR. CALL LIGHT IN REACH. BED ALARM ON.
[2020-02-09 08:00] VITALS: BP 136/44
[2020-02-09 12:00] VITALS: BP 126/44
--- NOTE | 2020-02-09 13:41 | NUR ---
PER , PT IS OK FOR DISCHARGE. INFORMED. STILL AWAITING RESULTS FOR HOME 02 ASSESSMENT.
--- NOTE | 2020-02-09 14:20 | NUR ---
HOME O2 ASSESSMENT: BP 126/44, HR 52, RR 20, PULSE OX 96% ON ROOM AIR AT REST. PATIENT UNABLE TO AMBULATE.
[2020-02-09] MEDS ORDERED: ASPIRIN ADULT L81 M2 PO (14:25)
[2020-02-09] MEDS ORDERED: CEFDINIR300 MG PO ×2 (14:25)
[2020-02-09] MEDS ORDERED: CARVEDILOL3.125 MG PO (14:25)
--- NOTE | 2020-02-09 14:33 | NUR ---
INFORMED OF DISCHARGE. NO AMBULANCE PREFERENCE.
--- NOTE | 2020-02-09 16:56 | NUR ---
Discharge instructions reviewed with patient/family. Patient receptive and verbalizes understanding. Follow-up care arranged. Written instructions given to patient/family. CIRA PRINCE
--- NOTE | 2020-02-11 08:25 | NUR ---
PRINTER TECHNICIAN FAXED DISCHARGE ORDERS TO [facility].
--- NOTE | 2020-02-11 09:11 | NUR ---
SEWER LINE PHOTO INSPECTOR CONTACTED [facility] AND CONFIRMED THEY RECEIVED THE DISCHARGE ORDERS. PER [facility], THEY HAVE THE PATIENT ON THE SCHEDULE TO BE SEEN TODAY.
== END 2020-02-09 16:56 | disposition home health service (06) | DRG 177 ==
LOC: ED 16:26 → EDHOLD 02-01 15:59 → 4E 02-01 15:59
PROVIDERS: Emergency Medicine; Internal Medicine; Internal Medicine Critical Care Medicine; ADMIT Internal Medicine; ATTEND Internal Medicine
PROC: 5A09357 Assistance with Respiratory Ventilation, Less than 24 Consecutive Hours, Continuous Positive Airway Pressure (ICD-10-PCS; principal; 2020-02-08)
DX: U07.1 COVID-19 (principal); I21.4 Non-ST elevation (NSTEMI) myocardial infarction; E43 Unspecified severe protein-calorie malnutrition; J96.00 Acute respiratory failure, unspecified whether with hypoxia or hypercapnia; N39.0 Urinary tract infection, site not specified; E87.1 Hypo-osmolality and hyponatremia; I69.351 Hemiplegia and hemiparesis following cerebral infarction affecting right dominant side; D68.59 Other primary thrombophilia; D64.9 Anemia, unspecified; E87.6 Hypokalemia; E11.65 Type 2 diabetes mellitus with hyperglycemia; E83.41 Hypermagnesemia; I10 Essential (primary) hypertension; R79.89 Other specified abnormal findings of blood chemistry; E66.01 Morbid (severe) obesity due to excess calories; Z96.653 Presence of artificial knee joint, bilateral; B96.1 Klebsiella pneumoniae [K. pneumoniae] as the cause of diseases classified elsewhere; I25.10 Atherosclerotic heart disease of native coronary artery without angina pectoris; R41.3 Other amnesia; Z79.4 Long term (current) use of insulin; Z88.0 Allergy status to penicillin; Z88.8 Allergy status to other drugs, medicaments and biological substances; Z95.5 Presence of coronary angioplasty implant and graft; Z90.710 Acquired absence of both cervix and uterus; Z82.49 Family history of ischemic heart disease and other diseases of the circulatory system; Z81.8 Family history of other mental and behavioral disorders; Z79.82 Long term (current) use of aspirin; Z79.899 Other long term (current) drug therapy; Z87.81 Personal history of (healed) traumatic fracture; Z90.722 Acquired absence of ovaries, bilateral; Z74.01 Bed confinement status; Z68.36 Body mass index [BMI] 36.0-36.9, adult

== ENCOUNTER 2020-02-18 14:41 | Inpatient (IN) | payer MEDICARE, OTHER ==
[~2020-02-18] VITALS: Ht 173 cm
[~2020-02-18 14:41] MED LIST changes: +ASPIRIN ADULT L81 M2 PO; +CARVEDILOL3.125 MG PO; +CEFDINIR300 MG PO
[2020-02-18 15:00] VITALS: BP 150/66
[2020-02-18 15:34] LABS: BASO % 0.4 % (0.0-1.0); EOS # 0.2 10*3/uL (0.0-0.4); EOS % 1.8 % (1.0-4.0); HEMATOCRIT 32.1 % (37.0-47.0); LYMPH % 19.8 % (27.0-41.0); MEAN CELL VOLUME 90.2 fl (81.0-99.0); MEAN CORPUSCULAR HGB 28.9 pg (27.0-31.0); MEAN CORPUSCULAR HGB CONC 32.1 g/dl (33.0-37.0); MEAN PLATELET VOLUME 10.5 fl (9.6-12.3); MONO # 0.9 10*3/uL (0.1-1.0); NEUT # 6.8 10*3/uL (2.3-7.9); NEUT % 68.6 % (47.0-73.0); PLATELET COUNT AUTOMATED 320 10*3/uL (130-400); RED BLOOD COUNT 3.56 10*6/uL (4.10-5.10); RED CELL DISTRI WIDTH 13.9 % (0-14.5); WHITE BLOOD COUNT 9.9 10*3/uL (4.8-10.8)
[2020-02-18 15:50] LABS: ALBUMIN 2.1 gm/dl (3.1-4.5); ALKALINE PHOSPHATASE 56 U/L (45-117); BUN 7 mg/dl (7-24); CHLORIDE 108 mmol/L (98-107); CREATININE 0.83 mg/dL (0.55-1.02); POTASSIUM 3.7 mmol/L (3.5-5.1); SGOT/AST 7 IU/L (3-35); SGPT/ALT 13 U/L (12-78); SODIUM 139 mmol/L (136-145); TOTAL PROTEIN 7.1 gm/dL (6.4-8.2); TROPONIN I < 0.015 ng/ml (<0.045)
[2020-02-18] MEDS ORDERED: AMLODIPINE BESYL5 MG PO (17:32)
[2020-02-18] MEDS ORDERED: ALDACTONE25 MG PO (17:32)
[2020-02-18] MEDS ORDERED: BRILINTA90 M1 PO (17:33)
[2020-02-18 17:34] VITALS: BP 150/66
[2020-02-18] MEDS ORDERED: RELION NOV100 UNIT/2 SQ (17:39)
[2020-02-18] MEDS ORDERED: RELION NOV100 UNIT/1 SQ (17:39)
--- NOTE | 2020-02-18 17:49 | NUR ---
PT DENIES ANY WOUNDS. REFUSING FURTHER ASSESSMENT OF SKIN. DRIED BLOOD NOTED ON ABRASION OF INNER RIGHT ANKLE.
[2020-02-18 18:15] VITALS: BP 148/70
--- NOTE | 2020-02-18 18:15 | NUR ---
The assessment has been completed. SONDRA ALTMAN Time: 1814 A 75 year old FEMALE admitted to under services of [facility] MD. Pt. arrived via ambulance from ER. Chief complaint: VIA LIFETEAM FROM HOME W C/O GENERALIZED WEAKNESS. PT RELEASES TUESDAY. +COVID [address] REYES CALLED AND PT NEEDS ADMITTED FOR FAILURE TO THRUIVE. SONDRA ALTMAN
--- NOTE | 2020-02-18 19:50 | NUR ---
PATIENT WITHOUT COMPLAINTS. DENIES SOB OR COUGH ON RA. WILL CONT TO MONITOR. ALL SAFETY MEASURES IN PLACE. SIDE RAILS X2. PROMPTED FOR URINE.
[2020-02-18 20:00] VITALS: BP 150/67
[2020-02-18 20:41] LABS: ABG BASE EXCESS -1.2 mmol/L (-2.0-2.0); ARTERIAL BLOOD GAS PH 7.437 (7.35-7.45)
--- NOTE | 2020-02-18 21:00 | NUR ---
Called with ABG results. Informed me to put pt on 2L NC and ask her to bring in her home CPAP unit. Nurse aware also.
--- NOTE | 2020-02-18 21:04 | NUR ---
DR REYES CALLED IN TO REVIEW LAB WORK. ORDER TAKEN FOR STAT CTA OF THE CHEST WITH CONTRAST TO ROLL OUT PE.
--- NOTE | 2020-02-18 21:05 | NUR ---
PT PLACED ON 2LNC POST ABG PER DR REYES. RN AWARE. PT IS 100%
--- NOTE | 2020-02-18 21:10 | NUR ---
PATIENT PULLED OUT IV. PATIENT CLEANED UP. PATIENT NOTIFIED THAT CAT SCAN IS ORDERED AND THAT SHE NEEDS A NEW IV SITE, TO WHICH SHE REFUSES. CAMERON PRESSLEY SPOKE WITH PATIENT AND SHE IS NOW AGREEABLE. WILL ATTEMPT NEW IV
--- NOTE | 2020-02-18 22:00 | NUR ---
PATIENT TAKEN DOWN TO CAT SCAN
--- NOTE | 2020-02-18 22:20 | NUR ---
CAT SCAN NOTIFIED PATIENT IS NOW READY WITH AN IV AND THEY STATE THAT THEY WILL CALL WHEN THEY ARE AVAILABLE
[2020-02-19] VITALS: BP 145/57
[2020-02-19 08:00] VITALS: BP 150/78
--- NOTE | 2020-02-19 08:30 | NUR ---
Hat Ironer in to talk to patient. Patient states lives at home with her . There are 12 steps in the home. Physician: Dr. Sue Church Pharmacy: [facility] Home health services: [facility] Patient's level of ADLs: MINIMAL ASSIST Patient has working utilities: yes DME: walker, hospital bed Follow-up physician's appointment after d/c: she prefers to maker her own follow up appt after discharge Does patient want to access PORTAL?: no Discharge plan discussed with patient. She lives at home with her . She states she needs minimal assistance with her ADLs and ambulates with a walker. Discussed short term rehab and she declines. Discussed home health care services and she currently has [facility] and would to resume those services upon discharge. When medically stable she will be discharged to home with the resumption of her [facility]. She states her will provide transportation on discharge. RENETTA VALERA
--- NOTE | 2020-02-19 08:45 | NUR ---
PER KENDALL PRESSLEY PATIENT MAY HAVE COMPRESSION FRACTURE TO LUMBAR SPINE. DR. REYES DOES NOT WANT PATIENT TO BE MOVED AT THIS TIME.
[2020-02-19 12:00] VITALS: BP 159/65
--- NOTE | 2020-02-19 13:25 | NUR ---
PUBLIC INFORMATION COORDINATOR FAXED HOME HEALTH ORDER AND CLINICALS TO [facility].
--- NOTE | 2020-02-19 14:37 | NUR ---
PHYSICAL THERAPY Eval received upon reviewing chart and nursing notes, note on 02/18 at 8:45 this AM (wound care nurse attempting to see pt) per primary nurs to not move pt as possible compression fx's, and not wanting pt moved. Attempted to clarify with nurse but no recent note from MD will follow and await clarification regarding activity. Danielle Stafford PT
--- NOTE | 2020-02-19 15:09 | NUR ---
OT NOTE Occupational therapy evaluation received and chart reviewed. Per nursing note this AM, patient to not move due to possible compression fx's per Dr. Church. No recent MD notes/orders have been placed on further OOB activity at this time. Will check back for completion of OT eval when clarified activity orders. Nila Bucio, OTR/L
[2020-02-19 16:00] VITALS: BP 150/69
--- NOTE | 2020-02-19 19:30 | NUR ---
PATIENT RESTING IN BED. PATIENT CONFUSED. ABLE TO ANSWER MY QUESTIONS. ALERT TO SELF AND PLACE. PATIENT ASKING "WHERE IS MY ?" PATIENT REORIENTED AND QUESTIONS ANSWERED. ASSESSMENT COMPLETE. 2L NC IN PLACE. RESPS EASY AND REGULAR. DENIES ANY NEEDS. REFUSING TO TURN. CALL LIGHT IS WITHIN REACH.
[2020-02-19 20:00] VITALS: BP 159/64
[2020-02-20] VITALS: BP 164/76
--- NOTE | 2020-02-20 00:18 | NUR ---
PATIENT INCONTINENT OF BOWEL AT THIS TIME. PATIENT CHANGED AND HYDROGEL APPLIED TO BUTTOCKS. TURNED ON SIDE AND REPOSITIONED FOR COMFORT AT THIS TIME. CALL LIGHT WITHIN REACH. DENIES ANY NEEDS.
--- NOTE | 2020-02-20 00:24 | NUR ---
24 HR chart check completed.
[2020-02-20 06:32] LABS: BASO % 0.3 % (0.0-1.0); EOS # 0.1 10*3/uL (0.0-0.4); EOS % 1.1 % (1.0-4.0); HEMATOCRIT 33.5 % (37.0-47.0); LYMPH # 1.9 10*3/uL (1.3-4.4); LYMPH % 16.2 % (27.0-41.0); MEAN CELL VOLUME 88.9 fl (81.0-99.0); MEAN CORPUSCULAR HGB 28.6 pg (27.0-31.0); MEAN CORPUSCULAR HGB CONC 32.2 g/dl (33.0-37.0); MEAN PLATELET VOLUME 10.5 fl (9.6-12.3); MONO # 0.7 10*3/uL (0.1-1.0); MONO % 5.7 % (3.0-9.0); NEUT # 8.9 10*3/uL (2.3-7.9); NEUT % 76.4 % (47.0-73.0); PLATELET COUNT AUTOMATED 361 10*3/uL (130-400); RED BLOOD COUNT 3.77 10*6/uL (4.10-5.10); RED CELL DISTRI WIDTH 13.6 % (0-14.5); WHITE BLOOD COUNT 11.7 10*3/uL (4.8-10.8)
[2020-02-20 06:46] LABS: BUN 5 mg/dl (7-24); CHLORIDE 107 mmol/L (98-107); CREATININE 0.64 mg/dL (0.55-1.02); POTASSIUM 3.4 mmol/L (3.5-5.1); SODIUM 138 mmol/L (136-145)
[2020-02-20 08:00] VITALS: BP 156/72
--- NOTE | 2020-02-20 09:00 | NUR ---
CM in to see patient. She is currently on the phone with her . Discussed short term rehab and both patient and her adamantly refuse. The states "the last couple of times she went to rehab, she was not very happy. I can do what they did for her there at home." Discussed home health care services and she currently has [facility] and would like to resume those services upon discharge. When medically stable she will be discharged to home with the resumption of her [facility].
[2020-02-20 13:00] VITALS: BP 148/66
--- NOTE | 2020-02-20 14:50 | NUR ---
Occupational Therapy evaluation completed on four with full evaluation to follow. Recommend occupational therapy per plan of care and SNF upon discharge. Thank you for this referral. Nila Bucio OTR/L
--- NOTE | 2020-02-20 15:05 | NUR ---
Received call from Dr. Church. She states patient and are agreeable to [facility] or [facility]. CM in to see patient. Patient does not want to go anywhere but home. Called and spoke to patient's , Kavon, regarding short term rehab. He is agreeable to [facility] as it is closest for him. Discussed patient is currently working with therapy. He ask that his call him when therapy is done working with her. Discussed her being agreeable to [facility] and to call him when she is done working with therapy. OT will help patient make call to her . She is NOT agreeable at this time to go anywhere but home. CM will follow with patient in the am to follow-up on her conversation with her .
[2020-02-20 16:00] VITALS: BP 150/60
--- NOTE | 2020-02-20 19:30 | NUR ---
PT RESTING IN BED. RESPS EASY AND NON LABORED. NO S/S OF DISTRESS NOTED. VSS. WHITE BOARD UPDATED. POC DISCUSSED W PT. A/O X3 W PERIODS OF CONFUSION. CURRENTLY ON 2L NC. NO C/O BACK PAIN AT THIS TIME. REPOSITIONED FOR COMFORT. WILL CONTINUE TO MONITOR. SKIN AND FALL PRECAUTIONS MAINTAINED. CALL LIGHT WITHIN REACH.
[2020-02-20 20:00] VITALS: BP 133/58
[2020-02-21] VITALS: BP 152/54
--- NOTE | 2020-02-21 01:00 | NUR ---
PT SLEEPING. RESPS EASY AND NON LABORED. NO S/S OF DISTRESS NOTED. SKIN/FALL PRECAUTIONS MAINTAINED. CALL LIGHT WITHIN REACH.
[2020-02-21 06:46] LABS: BUN 7 mg/dl (7-24); CHLORIDE 108 mmol/L (98-107); POTASSIUM 3.4 mmol/L (3.5-5.1); SODIUM 139 mmol/L (136-145)
--- NOTE | 2020-02-21 07:54 | NUR ---
CM in to see patient. Discusses short term rehab. CM called patient's , Carlo, while in the room. Patient spoke to regarding short term rehab. Carlo wants patient to go to [facility] as at this point in time he is not able to take care of her. They do have [facility] at home but Carlo states they are not there all of the time and he is not able to turn and clean her. Patient agreeable to [facility]. COVID pending. Notified nephrology social worker for referral.
[2020-02-21 08:00] VITALS: BP 136/56
--- NOTE | 2020-02-21 08:15 | NUR ---
PHYSICAL THERAPY Patient seen this am 1:1 for therapy visit and was resting supine in bed upon therapist arrival. Patient identified by name / and presented with continuos O2-2L via NC, reporting c/o of 10/10 low back pain and joined by OT housekeeper/laundry assistant this morning for observation only. Patient transfers supine to sit EOB with MOD A x 2, tolerating approx 5 minutes static EOB sit. Patient unable to attempt seated LAQ or marching ex, stating she just doesn't have the energy to do this. Patient did perform several sit to stand transfers at bedside, MOD A with use of wh walker standing support, tolerating < 20 seconds static stand each trial prior to quick onset of fatigue. Patient returned to supine in bed and remaiend with call light, tray table, telephone, bed alarm for safety. Will continue per POC as tolerated, total treamtment time 16 minutes. Adriano Coats, ENVIRONMENT COORDINATOR
--- NOTE | 2020-02-21 08:30 | NUR ---
OT NOTE Pt was seen this A.M. 1:1 for 20 minute OT session. Upon arrival pt was supine in bed. Pt identified by name and and had complaints of 10/10 low back pain. Pt presented to therapy with continuous 2L-O2 via NC which she remained on throughout the entire session. Pt transferred supine to sit EOB with maxA X 2. While sitting EOB pt required maxA for donning B socks. Pt completed multiple sit to stand transfers from bed level with modA X 2 and use of w/w for UE support. Challenged pt's static standing tolerance needed for increased I in self care tasks and functional transfers. Pt was able to tolerate aprox 20 seconds at a time before sitting due to fatigue. Throughout static standing pt required constant verbal prompts for correcting her posture and encouragement. While sitting EOB pt completed BUE towel exercises with min resistance over all planes for 1 X 5 to increase UE strength. Throughout ther ex pt required constant verbal prompts for attention to task and participation. Pt transferred back into bed sit to supine with maxA X 2 and was repositioned in bed with maxA X 2. There she was left with call light in hand, tray table in place, and bed alarm activated for safety. Continue with rec D/C plan to SNF. AASHISH Newton/Joshua
--- NOTE | 2020-02-21 08:43 | NUR ---
Received call from Dr. Church. Plan is to discharge patient tomorrow to [facility] as long as COVID returns negative and [facility] accepts.
[2020-02-21 12:00] VITALS: BP 144/62
[2020-02-21 16:00] VITALS: BP 144/50
--- NOTE | 2020-02-21 16:00 | NUR ---
PT HAD LARGE BM. [facility] PROVIDED.VOICES NO C/O AT THIS TIME. COOPERATIVE WITH CARE. REPOSITIONED FOR COMFORT. VOICES NO OTHE RC/O AT THIS TIME. CALL LIGHT IN REACH.
--- NOTE | 2020-02-21 19:40 | NUR ---
PT SEEN AND ASSESSED. PT VERBALIZED HER WANT TO GO HOME. EDUCATED PT ON NNED TO BE HERE AND PLAN OF CARE. PT VERBALIZES HER UNDERSTANDING OF THIS.
[2020-02-21 20:00] VITALS: BP 112/61
[2020-02-22] VITALS: BP 140/51
--- NOTE | 2020-02-22 00:15 | NUR ---
PT VERBALIZES THAT SHE WANTS TO GO HOME AND BECOMES TEARFUL. AGAIN EXPLAINING TO PATIENT THE NEED FOR HOSPITALIZATION AND HER PLAN OF CARE. PT VERBALIZES HER UNDERSTANDING OF THIS EDUCATION BUT STATES SHE IS "NOT HAPPY WITH IT"
--- NOTE | 2020-02-22 05:28 | NUR ---
24 HR chart check completed.
[2020-02-22] MEDS ORDERED: DICLOFENAC SOD100 G1 T (06:46)
[2020-02-22] MEDS ORDERED: Lidoderm 5% Patch T (06:46)
[2020-02-22] MEDS ORDERED: ZITHROMAX500 MG PO (06:51)
[2020-02-22] MEDS ORDERED: K-TAB20 MEQ PO (06:51)
--- NOTE | 2020-02-22 07:17 | NUR ---
PATIENT IS BEING DISCHARGED TO [facility] TODAY. WILL SPEAK WITH RN TO ARRANGE DISCHARGE/TRANSPORTATION.
[2020-02-22 07:30] LABS: BASO # 0.1 10*3/uL (0.0-0.1); BASO % 0.6 % (0.0-1.0); EOS # 0.2 10*3/uL (0.0-0.4); HEMATOCRIT 33.5 % (37.0-47.0); MEAN CELL VOLUME 94.1 fl (81.0-99.0); MEAN CORPUSCULAR HGB 29.2 pg (27.0-31.0); MEAN PLATELET VOLUME 10.6 fl (9.6-12.3); MONO # 0.6 10*3/uL (0.1-1.0); MONO % 7.8 % (3.0-9.0); NEUT # 5.1 10*3/uL (2.3-7.9); NEUT % 63.5 % (47.0-73.0); PLATELET COUNT AUTOMATED 311 10*3/uL (130-400); RED BLOOD COUNT 3.56 10*6/uL (4.10-5.10); RED CELL DISTRI WIDTH 14.1 % (0-14.5)
[2020-02-22 08:00] VITALS: BP 128/52
[2020-02-22 08:01] LABS: ALBUMIN 2.2 gm/dl (3.1-4.5); ALKALINE PHOSPHATASE 57 U/L (45-117); BUN 6 mg/dl (7-24); CHLORIDE 110 mmol/L (98-107); CREATININE 0.79 mg/dL (0.55-1.02); POTASSIUM 3.5 mmol/L (3.5-5.1); SGOT/AST 10 IU/L (3-35); SGPT/ALT 13 U/L (12-78); SODIUM 141 mmol/L (136-145); TOTAL PROTEIN 6.8 gm/dL (6.4-8.2)
--- NOTE | 2020-02-22 09:15 | NUR ---
FIRE PREVENTION RESEARCH ENGINEER NOTIFIED OF PATIENT DISCHARGE. FIRE PREVENTION RESEARCH ENGINEER SPOKE WITH [facility]. FIRE PREVENTION RESEARCH ENGINEER ARRANGED FOR [facility] TO TRANSPORT THE PATIENT TO [facility] AT 2PM. FIRE PREVENTION RESEARCH ENGINEER NOTIFIED [facility] AND CONTACTED PATIENTS , MESSAGE WAS LEFT EXPLAINING DISCHARGE. FIRE PREVENTION RESEARCH ENGINEER COMPLETED HENS. FIRE PREVENTION RESEARCH ENGINEER WILL FAX DISCHARGE ORDERS TO [facility].
--- NOTE | 2020-02-22 09:53 | NUR ---
CRISIS INTERVENTION SPECIALIST CONTACTED [facility] AND INFORMED THEM THIS PATIENT IS DISCHARGING TO [facility] TODAY.
--- NOTE | 2020-02-22 13:16 | NUR ---
PT REFUSED DISCHARGE WOUND PHOTOS.
--- NOTE | 2020-02-22 13:37 | NUR ---
REPORT GIVEN TO [facility] NURSEGIGI.
--- NOTE | 2020-02-22 14:19 | NUR ---
DISCHARGE INSTRUCTIONS PLACED IN FOLDER TO BE GIVEN TO EMT FOR NURSE AT [facility].
--- NOTE | 2020-02-22 14:32 | NUR ---
PT TRANSPORTED VIA [facility] TO [facility] AT THIS TIME.
--- NOTE | 2020-02-22 15:42 | NUR ---
PHYSICAL THERAPY CO-SIGN I approve of the Physical Therapy notes written above. Danielle Stafford PT
--- NOTE | 2020-02-22 15:46 | NUR ---
OCCUPATIONAL THERAPY CO-SIGN I approve of the Occupational Therapy notes written above. KRANTHI ROSA, OTR/L
== END 2020-02-22 15:29 | disposition other institution (70) | DRG 70 ==
LOC: ED 14:41 → 4E 16:20 → EDHOLD 16:20 → 4E 16:59
PROVIDERS: Emergency Medicine; ADMIT Internal Medicine; ATTEND Internal Medicine
DX: G93.41 Metabolic encephalopathy (principal); J96.01 Acute respiratory failure with hypoxia; E43 Unspecified severe protein-calorie malnutrition; J12.89 Other viral pneumonia; N39.0 Urinary tract infection, site not specified; I25.10 Atherosclerotic heart disease of native coronary artery without angina pectoris; I10 Essential (primary) hypertension; M47.26 Other spondylosis with radiculopathy, lumbar region; M48.061 Spinal stenosis, lumbar region without neurogenic claudication; E11.65 Type 2 diabetes mellitus with hyperglycemia; E87.6 Hypokalemia; B94.8 Sequelae of other specified infectious and parasitic diseases; I25.2 Old myocardial infarction; Z90.710 Acquired absence of both cervix and uterus; Z90.722 Acquired absence of ovaries, bilateral; Z96.653 Presence of artificial knee joint, bilateral; Z82.49 Family history of ischemic heart disease and other diseases of the circulatory system; Z82.0 Family history of epilepsy and other diseases of the nervous system; Z86.73 Personal history of transient ischemic attack (TIA), and cerebral infarction without residual deficits; Z68.36 Body mass index [BMI] 36.0-36.9, adult; Z20.828 Contact with and (suspected) exposure to other viral communicable diseases